=== PATIENT | male | born 1950 | race Caucasian/White ===

== ENCOUNTER 2021-08-03 06:40 | Inpatient (IN) | payer OTHER ==
[2021-08-03] MEDS ORDERED: Sodium Chloride 0.9% 1,000 ML ONE (07:07)
[2021-08-03] MEDS ORDERED: Aspirin 81 MG Tab.Chew ONE (07:07)
[2021-08-03] MEDS ORDERED: Aspirin 81 MG Tab.Chew PO ONE (07:22)
[2021-08-03] MEDS ORDERED: Sodium Chloride 0.9% 1,000 ML IV ONE ×2 (07:22→09:19)
[2021-08-03] MEDS ORDERED: Acetaminophen 500 MG Tab PO ONE (07:42)
--- NOTE | 2021-08-03 07:52 | EDM.PDOC ---
ED HPI GENERAL MEDICAL PROBLEM - General Chief Complaint: Respiratory Problem Stated Complaint: shortness of breath Time Seen by Provider: 08/03/21 07:10 Source of Information: Reports: Patient, Family () History Limitations: Reports: No Limitations - History of Present Illness INITIAL COMMENTS - FREE TEXT/NARRATIVE: 71-year-old male presents to the emergency room with complaints of shortness of breath, diaphoretic for 48 hours. He reports no chest pain. He has not been feeling well and reports a mild cough. Denies a headache, nausea vomiting. He denies any fever or chills. No abdominal pain. He is not aware of any recent exposure to Covid. He has not had any swelling in his legs. He has a past medical history is significant for coronary artery disease VT, stent, defibrillator placement in 2004. Positive for hypertension and congestive heart failure. 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 He is a previous smoker. Primary care is Dr. Ervin from the [facility]. He goes to [place]. Onset: Gradual Onset Date: 08/01/21 Duration: Day(s):, Getting Worse Location: Reports: Chest Severity: Moderate Improves with: Reports: None Worsens with: Reports: None Associated Symptoms: Reports: Cough, Diaphoresis, Fever/Chills, Shortness of Breath. Denies: Chest Pain, Nausea/Vomiting - Related Data Allergies Allergy/AdvReac Type Severity Reaction Status Date / Time No Known Allergies Allergy Verified 08/03/21 07:01 ED ROS GENERAL - Review of Systems Review Of Systems: See Below Constitutional: Reports: Fever, Diaphoresis. Denies: Chills HEENT: Reports: Glasses Respiratory: Reports: Shortness of Breath, Cough Cardiovascular: Reports: Blood Pressure Problem, Dyspnea on Exertion. Denies: Chest Pain, Claudication, Edema Endocrine: Reports: No Symptoms GI/Abdominal: Reports: No Symptoms : Reports: No Symptoms Musculoskeletal: Reports: No Symptoms Skin: Reports: Diaphoresis, Other (Is warm and sweaty). Denies: Cyanosis Neurological: Reports: No Symptoms Psychiatric: Reports: No Symptoms Hematologic/Lymphatic: Reports: No Symptoms Immunologic: Reports: No Symptoms ED EXAM, GENERAL - Physical Exam Exam: See Below Exam Limited By: No Limitations General Appearance: Alert, WD/WN, Mild Distress, Other (Overweight) Eye Exam: Bilateral Eye: EOMI Ears: Hearing Grossly Normal Nose: Normal Inspection, Normal Mucosa Throat/Mouth: Normal Inspection, Normal Oropharynx, Normal Voice, No Airway Compromise Head: Atraumatic, Normocephalic Neck: Normal Inspection, Supple, Non-Tender, Full Range of Motion. No: Lymphadenopathy (L), Lymphadenopathy (R) Respiratory/Chest: No Respiratory Distress, Lungs Clear, Normal Breath Sounds, No Accessory Muscle Use, Chest Non-Tender Cardiovascular: Regular Rate, Rhythm, No Edema, No JVD Peripheral Pulses: 1+: Carotid (L), Carotid (R), Radial (L), Radial (R), Dorsalis Pedis (L), Dorsalis Pedis (R) GI/Abdominal: Normal Bowel Sounds, Soft, Non-Tender, No Organomegaly Back Exam: Normal Inspection, Full Range of Motion Extremities: Normal Inspection, Normal Range of Motion, No Pedal Edema Neurological: Alert, Oriented, No Motor/Sensory Deficits Psychiatric: Normal Affect, Normal Mood Skin Exam: Warm, Diaphoretic Lymphatic: No Adenopathy Course - Vital Signs Last Recorded V/S: Last Vital Signs Temp 98.8 F 08/03/21 08:16 Pulse 71 08/03/21 10:00 Resp 17 08/03/21 10:00 BP 115/59 L 08/03/21 10:00 Pulse Ox 94 L 08/03/21 10:00 - Orders/Labs/Meds Orders: Active Orders 24 hr Category Date Time Status PROCALCITONIN [REF] Stat Lab 08/03/21 08:31 Ordered Sodium Chloride 0.9% [Normal Saline] 100 ml Med 08/03/21 11:15 Active IV ASDIRECTED EKG 12 Lead [EK] Stat Ther 08/03/21 07:23 Ordered Medication Orders Sodium Chloride (Normal Saline) 100 mls @ 200 mls/hr IV ASDIRECTED WES Last Admin: 08/03/21 11:04 Dose: 200 mls/hr Documented by: MARICRUZ Labs: Laboratory Tests 08/03/21 08/03/21 08/03/21 Range/Units 07:00 07:00 07:40 WBC 5.39 (5.00-10.00) 10^3/uL RBC 4.77 (4.50-6.00) 10^6/uL Hgb 14.2 (13.0-17.0) g/dL Hct 42.6 (40.0-52.0) % MCV 89.3 (82.0-92.0) fL MCH 29.8 (27.0-31.0) pg MCHC 33.3 (32.0-36.0) g/dL RDW 13.8 (11.5-14.5) % Plt Count 138 L (150-400) 10^3/uL MPV 10.9 H (7.4-10.4) fL Immature Gran % (Auto) 0.2 (0.0-5.0) % Neut % (Auto) 89.2 H (50.0-70.0) % Lymph % (Auto) 6.3 L (20.0-40.0) % [place] % (Auto) 3.9 (2.0-8.0) % Eos % (Auto) 0.2 L (1.0-3.0) % Baso % (Auto) 0.2 (0.0-1.0) % Neut # (Auto) 4.81 (2.50-7.00) 10^3/uL Lymph # (Auto) 0.34 L (1.00-4.00) 10^3/uL [place] # (Auto) 0.21 (0.10-0.80) 10^3/uL Eos # (Auto) 0.01 L (0.10-0.30) 10^3/uL Baso # (Auto) 0.01 (0.00-0.10) 10^3/uL Immature Gran # (Auto) 0.01 (0.00-0.50) 10^3/uL APTT (22.8-31.4) SEC D-Dimer, Quantitative (<400) ng/mL Sodium 137 (136-145) mmol/L Potassium 3.8 (3.5-5.1) mmol/L Chloride 100 (98-107) mmol/L Carbon Dioxide 25.4 (21.0-32.0) mmol/L Anion Gap 15.4 H (5-15) mmol/L BUN 24 H (7-18) mg/dL Creatinine 1.26 H (0.51-1.17) mg/dL Est Cr Clr Drug Dosing 52.02 mL/min Estimated GFR (MDRD) 56 mL/min Glucose 127 (70-140) mg/dL Lactic Acid (0.4-2.0) mmol/L Calcium 8.3 L (8.7-10.3) mg/dL Total Bilirubin 0.5 (0.2-1.0) mg/dL AST 47 H (15-37) U/L ALT 38 (14-63) U/L Alkaline Phosphatase 65 (46-116) U/L Troponin I High Sens 38.000 (0-76.000) pg/mL C-Reactive Protein (0.0-0.9) mg/dL B-Natriuretic Peptide 56 (0-100) pg/mL Total Protein 7.1 (6.4-8.2) g/dL Albumin 2.54 L (3.40-5.00) g/dL SARS CoV-2 RNA Rapid HOLLI (NEGATIVE) 08/03/21 08/03/21 08/03/21 Range/Units 07:47 08:00 08:31 WBC (5.00-10.00) 10^3/uL RBC (4.50-6.00) 10^6/uL Hgb (13.0-17.0) g/dL Hct (40.0-52.0) % MCV (82.0-92.0) fL MCH (27.0-31.0) pg MCHC (32.0-36.0) g/dL RDW (11.5-14.5) % Plt Count (150-400) 10^3/uL MPV (7.4-10.4) fL Immature Gran % (Auto) (0.0-5.0) % Neut % (Auto) (50.0-70.0) % Lymph % (Auto) (20.0-40.0) % [place] % (Auto) (2.0-8.0) % Eos % (Auto) (1.0-3.0) % Baso % (Auto) (0.0-1.0) % Neut # (Auto) (2.50-7.00) 10^3/uL Lymph # (Auto) (1.00-4.00) 10^3/uL [place] # (Auto) (0.10-0.80) 10^3/uL Eos # (Auto) (0.10-0.30) 10^3/uL Baso # (Auto) (0.00-0.10) 10^3/uL Immature Gran # (Auto) (0.00-0.50) 10^3/uL APTT 30.1 (22.8-31.4) SEC D-Dimer, Quantitative 1610 H (<400) ng/mL Sodium (136-145) mmol/L Potassium (3.5-5.1) mmol/L Chloride (98-107) mmol/L Carbon Dioxide (21.0-32.0) mmol/L Anion Gap (5-15) mmol/L BUN (7-18) mg/dL Creatinine (0.51-1.17) mg/dL Est Cr Clr Drug Dosing mL/min Estimated GFR (MDRD) mL/min Glucose (70-140) mg/dL Lactic Acid 1.9 (0.4-2.0) mmol/L Calcium (8.7-10.3) mg/dL Total Bilirubin (0.2-1.0) mg/dL AST (15-37) U/L ALT (14-63) U/L Alkaline Phosphatase (46-116) U/L Troponin I High Sens (0-76.000) pg/mL C-Reactive Protein (0.0-0.9) mg/dL B-Natriuretic Peptide (0-100) pg/mL Total Protein (6.4-8.2) g/dL Albumin (3.40-5.00) g/dL SARS CoV-2 RNA Rapid HOLLI Positive H (NEGATIVE) 08/03/21 Range/Units 08:34 WBC (5.00-10.00) 10^3/uL RBC (4.50-6.00) 10^6/uL Hgb (13.0-17.0) g/dL Hct (40.0-52.0) % MCV (82.0-92.0) fL MCH (27.0-31.0) pg MCHC (32.0-36.0) g/dL RDW (11.5-14.5) % Plt Count (150-400) 10^3/uL MPV (7.4-10.4) fL Immature Gran % (Auto) (0.0-5.0) % Neut % (Auto) (50.0-70.0) % Lymph % (Auto) (20.0-40.0) % [place] % (Auto) (2.0-8.0) % Eos % (Auto) (1.0-3.0) % Baso % (Auto) (0.0-1.0) % Neut # (Auto) (2.50-7.00) 10^3/uL Lymph # (Auto) (1.00-4.00) 10^3/uL [place] # (Auto) (0.10-0.80) 10^3/uL Eos # (Auto) (0.10-0.30) 10^3/uL Baso # (Auto) (0.00-0.10) 10^3/uL Immature Gran # (Auto) (0.00-0.50) 10^3/uL APTT (22.8-31.4) SEC D-Dimer, Quantitative (<400) ng/mL Sodium (136-145) mmol/L Potassium (3.5-5.1) mmol/L Chloride (98-107) mmol/L Carbon Dioxide (21.0-32.0) mmol/L Anion Gap (5-15) mmol/L BUN (7-18) mg/dL Creatinine (0.51-1.17) mg/dL Est Cr Clr Drug Dosing mL/min Estimated GFR (MDRD) mL/min Glucose (70-140) mg/dL Lactic Acid (0.4-2.0) mmol/L Calcium (8.7-10.3) mg/dL Total Bilirubin (0.2-1.0) mg/dL AST (15-37) U/L ALT (14-63) U/L Alkaline Phosphatase (46-116) U/L Troponin I High Sens (0-76.000) pg/mL C-Reactive Protein 18.1 H (0.0-0.9) mg/dL B-Natriuretic Peptide (0-100) pg/mL Total Protein (6.4-8.2) g/dL Albumin (3.40-5.00) g/dL SARS CoV-2 RNA Rapid HOLLI (NEGATIVE) Meds: Medications Generic Name Dose Route Start Last Admin Trade Name Freq PRN Reason Stop Dose Admin Sodium Chloride 100 mls @ 200 mls/hr 08/03/21 11:15 08/03/21 11:04 Normal Saline IV 200 mls/hr ASDIRECTED WES Administration Discontinued Medications Generic Name Dose Route Start Last Admin Trade Name Naif PRN Reason Stop Dose Admin Acetaminophen 1,000 mg 08/03/21 07:42 08/03/21 08:16 Acetaminophen 500 Mg Tab PO 08/03/21 07:43 1,000 mg ONETIME ONE Administration Aspirin Confirm 08/03/21 07:07 08/03/21 07:25 Aspirin 81 Mg Tab.Chew Administered 08/03/21 07:08 Not Given Dose 324 mg .ROUTE .STK-MED ONE Aspirin 324 mg 08/03/21 07:22 08/03/21 07:25 Aspirin 81 Mg Tab.Chew PO 08/03/21 07:23 324 mg ONETIME ONE Administration Dexamethasone 6 mg 08/03/21 08:35 08/03/21 08:50 Dexamethasone 10 Mg/Ml Sdv IVPUSH 08/03/21 08:36 6 mg ONETIME ONE Administration Sodium Chloride Confirm 08/03/21 07:07 08/03/21 07:26 Normal Saline Administered 08/03/21 07:08 Not Given Dose 1,000 mls @ as directed .ROUTE .STK-MED ONE Sodium Chloride 1,000 mls @ 999 mls/hr 08/03/21 07:22 08/03/21 07:25 Normal Saline IV 08/03/21 08:22 999 mls/hr .BOLUS ONE Administration Sodium Chloride 1,000 mls @ 1,000 mls/hr 08/03/21 09:19 08/03/21 09:20 Normal Saline IV 08/03/21 10:18 1,000 mls/hr .BOLUS ONE Administration Iopamidol 75 ml 08/03/21 09:53 08/03/21 11:04 Iopamidol 755 Mg/Ml 75 Ml Bottle IVPUSH 08/03/21 09:54 75 ml ONETIME ONE Administration - Radiology Interpretation Free Text/Narrative:: Chest PA and lateral Indication: Shortness of breath Comparison: None Discussion: Cardiomegaly with borderline central vascular congestion. Scattered paronychial scarring. No infiltrates or other pathology identified. But the scarring and vascular congestion limits sensitivity. Left subclavian approach pacemaker leads RA and RV. No effusion Impression: Cardiomegaly with borderline central vascular congestion CTA of chest Indication: Elevated D-dimer, Covid positive Comparison: None Discussion: The pulmonary arteries are normal in appearance with no emboli identified. Scattered areas of groundglass density seen throughout the lungs bilaterally. Mild central lobular and paraseptal emphysema. Airway thickening consistent with chronic bronchitis. No pleural or pericardial effusion. The heart is enlarged. Coronary artery disease. Atherosclerotic calcifications of the aorta and its branches. No mediastinal, biliary or axillary lymphadenopathy. 1 cm hypodensity within the liver likely represents a cyst. Impression: 1. No evidence acute pulmonary embolism 2. Scattered areas of groundglass density seen throughout the lungs bilaterally. Findings are likely infectious inflammatory in nature and can be seen with atypical/viral pneumonia. - Re-Assessments/Exams Free Text/Narrative Re-Assessment/Exam: 08/03/21 08:10 And is feeling much better. He is no longer diaphoretic. His O2 was dropped down to 3 L he is maintaining 95% on O2 air. Respiratory at 23. 08/03/21 11:18 Patient was taken off his oxygen to see if he was able to maintain his O2 saturations. On room air he dropped down to 78% he was placed back on 4 L of O2 nasal cannula where his O2 saturations are stabilized at 92%. I have discussed these findings with the patient today. He is not can be able to go home and will need to be admitted in the hospital with supplemental oxygen. Departure - Departure Time of Disposition: 11:40 Disposition: Admitted As Inpatient 66 Condition: Fair Clinical Impression: Hypoxemia, Respiratory distress determined by examination, SARS-CoV-2 positive - Discharge Information Referrals: Rajan Ervin MD [Primary Care Provider] - Forms: ED Department Discharge Sepsis Event Note (ED) - Evaluation Sepsis Screening Result: No Definite Risk - Focused Exam Vital Signs: Vital Signs Temp Temp Temp Pulse Resp BP Pulse Ox 08/03/21 10:00 71 17 115/59 L 94 L 08/03/21 08:16 98.8 F 08/03/21 08:00 71 18 100/57 L 96 08/03/21 07:30 98.8 F 75 23 H 98/66 94 L 08/03/21 07:15 79 20 98/66 94 L 08/03/21 07:00 78 20 86/49 L 93 L 08/03/21 06:56 96.2 F L 83 22 H 98/52 L 92 L - My Orders Last 24 Hours: My Active Orders 08/03/21 07:23 EKG 12 Lead [EK] Stat 08/03/21 08:31 PROCALCITONIN [REF] Stat 08/03/21 11:15 Sodium Chloride 0.9% [Normal Saline] 100 ml IV ASDIRECTED - Assessment/Plan Last 24 Hours: My Active Orders 08/03/21 07:23 EKG 12 Lead [EK] Stat 08/03/21 08:31 PROCALCITONIN [REF] Stat 08/03/21 11:15 Sodium Chloride 0.9% [Normal Saline] 100 ml IV ASDIRECTED Assessment:: Hypoxia Respiratory distress Positive Covid Plan: Patient was taken off his oxygen to see if he was able to maintain his O2 saturations. On room air he dropped down to 78% he was placed back on 4 L of O2 nasal cannula where his O2 saturations are stabilized at 92%. I have discussed these findings with the patient today. He is not able to go home and will need to be admitted in the hospital with supplemental oxygen. 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 Anibal has responded well with supplemental oxygen at 4 L nasal cannula. His blood pressures have improved and is currently 115/63 he is no longer hypotensive after 2 L of IV fluids given. He struggles with his O2 saturations when on room air and is dependent on supplemental oxygen. He was given 6 mg of dexamethasone IV.
[2021-08-03 08:34] LABS: ANION GAP 15.4 mmol/L (5-15)
[2021-08-03] MEDS ORDERED: Dexamethasone 10 MG/ML SDV IVPUSH ONE (08:35)
--- NOTE | 2021-08-03 09:11 | CR ---
[id number] RAD/RAD Chest PA And Lateral EXAM: RAD Chest PA And Lateral INDICATION: SHORTNESS OF BREATH COMPARISON: None. DISCUSSION: Cardiomegaly with borderline central vascular congestion. Scattered parenchymal scarring. No infiltrates or other pathology identified, but the scarring and vascular congestion limit sensitivity. Left subclavian approach pacemaker leads RA and RV. No effusions. IMPRESSION: 1. Cardiomegaly with borderline central vascular congestion. Bravo Vizcaino MD 08/03/21 0910 Thank you for allowing us to participate in the care of your patient.
[2021-08-03 09:47] LABS: PTT,PARTIAL THROMBOPLSTIN TIME 30.1 SEC (22.8-31.4)
[2021-08-03] MEDS ORDERED: Iopamidol 755 Mg/ML 75 ML Bottle IVPUSH ONE (09:53)
[2021-08-03] MEDS ORDERED: Sodium Chloride 0.9% 50 ML IV SCH (10:00)
[2021-08-03] MEDS ORDERED: Sodium Chloride 0.9% 100 ML IV SCH (11:15)
--- NOTE | 2021-08-03 11:27 | CT ---
[id number] CT/CTA Chest EXAM: CT ANGIOGRAM CHEST INDICATION: ELEVATED D DIMER, COVID POSITIVE. COMPARISON: None. DISCUSSION: The pulmonary arteries are normal in appearance with no emboli identified. Scattered areas of groundglass density seen throughout the lungs bilaterally. Mild centrilobular and paraseptal emphysema. Airway thickening consistent chronic bronchitis.No pleural or pericardial effusion. The heart is enlarged. Coronary artery disease. Atherosclerotic calcifications of the aorta and its branches. No mediastinal, hilar or axillary lymphadenopathy. 1 cm hypodensity within the liver likely represents a cyst. IMPRESSION: 1. No evidence of acute pulmonary embolism. 2. Scattered areas of groundglass density seen throughout the lungs bilaterally. Findings are likely infectious/inflammatory in nature as can be seen with atypical/viral pneumonia. Ramon Ro DO 08/03/21 1125 Thank you for allowing us to participate in the care of your patient.
[2021-08-03] MEDS ORDERED: Acetaminophen 325 MG Tab PO PRN (12:07)
--- NOTE | 2021-08-03 14:15 | PCM.HP.2 ---
H&P History of Present Illness - General Date of Service: 08/03/21 Admit Problem/Dx: Admission Diagnosis/Problem Admission Diagnosis/Problem Hypoxemia requiring supplemental oxygen - Related Data Allergies/Adverse Reactions: Allergies Allergy/AdvReac Type Severity Reaction Status Date / Time No Known Allergies Allergy Verified 08/03/21 07:01 Home Medications: Home Meds Acetaminophen [Acetaminophen Extra Strength] 1,000 mg PO BID 08/03/21 [History] Aspirin 325 mg PO DAILY 08/03/21 [History] Cyclobenzaprine [Flexeril] 10 mg PO TID PRN 08/03/21 [History] Ezetimibe [Zetia] 10 mg PO DAILY 08/03/21 [History] Levothyroxine Sodium [Synthroid] 100 mcg PO ACBREAKFAST 08/03/21 [History] Multivitamin with Minerals [Multiple Vitamin] 1 tab PO DAILY 08/03/21 [History] Nitroglycerin [Nitrostat] 0.4 mg SL ASDIRECTED PRN 08/03/21 [History] Pantoprazole [ProTONIX] 40 mg PO BID 08/03/21 [History] amLODIPine Besylate [Amlodipine Besylate] 10 mg PO DAILY 08/03/21 [History] atorvaSTATin Calcium [Atorvastatin Calcium] 80 mg PO BEDTIME 08/03/21 [History] carvediloL [Carvedilol] 25 mg PO BID 08/03/21 [History] guaiFENesin [Mucinex] 600 mg PO BEDTIME 08/03/21 [History] hydroCHLOROthiazide [Hydrochlorothiazide] 25 mg PO DAILY 08/03/21 [History] traMADol [Ultram] 50 mg PO TID 08/03/21 [History] Past Medical History HEENT History: Reports: Hard of Hearing, Impaired Vision Cardiovascular History: Reports: High Cholesterol, Hypertension, VA, Stents Respiratory History: Reports: Sleep Apnea Gastrointestinal History: Reports: GERD Genitourinary History: Reports: BPH Musculoskeletal History: Reports: RA Psychiatric History: Reports: None Endocrine/Metabolic History: Reports: Hypothyroidism, Obesity/BMI 30+ Oncologic (Cancer) History: Reports: Lung - Infectious Disease History Infectious Disease History: Reports: Chicken Pox, Influenza, Novel Coronavirus - Past Surgical History Cardiovascular Surgical History: Reports: Coronary Artery Stent, Other (See Shefali lora) Other Cardiovascular Surgeries/Procedures: ICD Social & Family History - Family History Family Medical History: No Pertinent Family History - Tobacco Use Tobacco Use Status *Q: Former Tobacco User Years of Tobacco use: 20 Packs/Tins Daily: 1 Used Tobacco, but Quit: Yes Month/Year Tobacco Last Used: 09/28/2004 Second Hand Smoke Exposure: No - Caffeine Use Caffeine Use: Reports: Coffee - Alcohol Use Days Per Week of Alcohol Use: 1 Number of Drinks Per Day: 1 Total Drinks Per Week: 1 - Recreational Drug Use Recreational Drug Use: No H&P Review of Systems - Review of Systems: Review Of Systems: See Below General: Reports: Fever (intermittently over the past 10 days to 2 weeks), Diaphoresis, Decreased Appetite HEENT: Reports: Headaches Pulmonary: Reports: Shortness of Breath, Cough Cardiovascular: Reports: Dyspnea on Exertion, Other (diaphoresis this morning) Gastrointestinal: Reports: Diarrhea, Decreased Appetite. Denies: Nausea, Vomiting Genitourinary: Reports: No Symptoms Musculoskeletal: Reports: No Symptoms Skin: Reports: No Symptoms Psychiatric: Reports: No Symptoms Neurological: Reports: No Symptoms Hematologic/Lymphatic: Reports: No Symptoms Immunologic: Reports: No Symptoms Exam - Exam Exam: See Below - Vital Signs Vital Signs: Last Vital Signs Temp 97.7 F 08/03/21 12:05 Pulse 72 08/03/21 12:05 Resp 20 08/03/21 12:05 BP 140/67 08/03/21 12:05 Pulse Ox 94 L 08/03/21 12:07 Weight: 225 lb - Exam Quality Assessment: Supplemental Oxygen, DVT Prophylaxis General: Alert, Oriented, Cooperative. No: Mild Distress HEENT: Conjunctiva Clear, Mucosa Moist & [place] Neck: Supple, Trachea Midline Lungs: Decreased Breath Sounds, Rhonchi. No: Crackles Cardiovascular: Regular Rate, Regular Rhythm. No: Systolic Murmur GI/Abdominal Exam: Normal Bowel Sounds, Soft, Non-Tender, No Distention (Male) Exam: Deferred Rectal (Males) Exam: Deferred Back Exam: Normal Inspection, Full Range of Motion Extremities: Normal Inspection, Normal Range of Motion, Non-Tender, No Pedal Edema, Normal Capillary Refill Peripheral Pulses: 2+: Dorsalis Pedis (L), Dorsalis Pedis (R) Skin: Warm, Dry, Intact Neurological: Normal Speech, Normal Tone Neuro Extensive - Mental Status: Alert, Oriented x3, Normal Mood/Affect, Normal Cognition Psychiatric: Alert, Normal Affect, Normal Mood - Patient Data Lab Results Last 24 hrs: Laboratory Results - last 24 hr 08/03/21 08/03/21 08/03/21 Range/Units 07:00 07:00 07:40 WBC 5.39 (5.00-10.00) 10^3/uL RBC 4.77 (4.50-6.00) 10^6/uL Hgb 14.2 (13.0-17.0) g/dL Hct 42.6 (40.0-52.0) % MCV 89.3 (82.0-92.0) fL MCH 29.8 (27.0-31.0) pg MCHC 33.3 (32.0-36.0) g/dL RDW 13.8 (11.5-14.5) % Plt Count 138 L (150-400) 10^3/uL MPV 10.9 H (7.4-10.4) fL Immature Gran % (Auto) 0.2 (0.0-5.0) % Neut % (Auto) 89.2 H (50.0-70.0) % Lymph % (Auto) 6.3 L (20.0-40.0) % [place] % (Auto) 3.9 (2.0-8.0) % Eos % (Auto) 0.2 L (1.0-3.0) % Baso % (Auto) 0.2 (0.0-1.0) % Neut # (Auto) 4.81 (2.50-7.00) 10^3/uL Lymph # (Auto) 0.34 L (1.00-4.00) 10^3/uL [place] # (Auto) 0.21 (0.10-0.80) 10^3/uL Eos # (Auto) 0.01 L (0.10-0.30) 10^3/uL Baso # (Auto) 0.01 (0.00-0.10) 10^3/uL Immature Gran # (Auto) 0.01 (0.00-0.50) 10^3/uL APTT (22.8-31.4) SEC D-Dimer, Quantitative (<400) ng/mL Sodium 137 (136-145) mmol/L Potassium 3.8 (3.5-5.1) mmol/L Chloride 100 (98-107) mmol/L Carbon Dioxide 25.4 (21.0-32.0) mmol/L Anion Gap 15.4 H (5-15) mmol/L BUN 24 H (7-18) mg/dL Creatinine 1.26 H (0.51-1.17) mg/dL Est Cr Clr Drug Dosing 52.02 mL/min Estimated GFR (MDRD) 56 mL/min Glucose 127 (70-140) mg/dL Lactic Acid (0.4-2.0) mmol/L Calcium 8.3 L (8.7-10.3) mg/dL Total Bilirubin 0.5 (0.2-1.0) mg/dL AST 47 H (15-37) U/L ALT 38 (14-63) U/L Alkaline Phosphatase 65 (46-116) U/L Troponin I High Sens 38.000 (0-76.000) pg/mL C-Reactive Protein (0.0-0.9) mg/dL B-Natriuretic Peptide 56 (0-100) pg/mL Total Protein 7.1 (6.4-8.2) g/dL Albumin 2.54 L (3.40-5.00) g/dL SARS CoV-2 RNA Rapid HOLLI (NEGATIVE) 08/03/21 08/03/21 08/03/21 Range/Units 07:47 08:00 08:31 WBC (5.00-10.00) 10^3/uL RBC (4.50-6.00) 10^6/uL Hgb (13.0-17.0) g/dL Hct (40.0-52.0) % MCV (82.0-92.0) fL MCH (27.0-31.0) pg MCHC (32.0-36.0) g/dL RDW (11.5-14.5) % Plt Count (150-400) 10^3/uL MPV (7.4-10.4) fL Immature Gran % (Auto) (0.0-5.0) % Neut % (Auto) (50.0-70.0) % Lymph % (Auto) (20.0-40.0) % [place] % (Auto) (2.0-8.0) % Eos % (Auto) (1.0-3.0) % Baso % (Auto) (0.0-1.0) % Neut # (Auto) (2.50-7.00) 10^3/uL Lymph # (Auto) (1.00-4.00) 10^3/uL [place] # (Auto) (0.10-0.80) 10^3/uL Eos # (Auto) (0.10-0.30) 10^3/uL Baso # (Auto) (0.00-0.10) 10^3/uL Immature Gran # (Auto) (0.00-0.50) 10^3/uL APTT 30.1 (22.8-31.4) SEC D-Dimer, Quantitative 1610 H (<400) ng/mL Sodium (136-145) mmol/L Potassium (3.5-5.1) mmol/L Chloride (98-107) mmol/L Carbon Dioxide (21.0-32.0) mmol/L Anion Gap (5-15) mmol/L BUN (7-18) mg/dL Creatinine (0.51-1.17) mg/dL Est Cr Clr Drug Dosing mL/min Estimated GFR (MDRD) mL/min Glucose (70-140) mg/dL Lactic Acid 1.9 (0.4-2.0) mmol/L Calcium (8.7-10.3) mg/dL Total Bilirubin (0.2-1.0) mg/dL AST (15-37) U/L ALT (14-63) U/L Alkaline Phosphatase (46-116) U/L Troponin I High Sens (0-76.000) pg/mL C-Reactive Protein (0.0-0.9) mg/dL B-Natriuretic Peptide (0-100) pg/mL Total Protein (6.4-8.2) g/dL Albumin (3.40-5.00) g/dL SARS CoV-2 RNA Rapid HOLLI Positive H (NEGATIVE) 08/03/21 Range/Units 08:34 WBC (5.00-10.00) 10^3/uL RBC (4.50-6.00) 10^6/uL Hgb (13.0-17.0) g/dL Hct (40.0-52.0) % MCV (82.0-92.0) fL MCH (27.0-31.0) pg MCHC (32.0-36.0) g/dL RDW (11.5-14.5) % Plt Count (150-400) 10^3/uL MPV (7.4-10.4) fL Immature Gran % (Auto) (0.0-5.0) % Neut % (Auto) (50.0-70.0) % Lymph % (Auto) (20.0-40.0) % [place] % (Auto) (2.0-8.0) % Eos % (Auto) (1.0-3.0) % Baso % (Auto) (0.0-1.0) % Neut # (Auto) (2.50-7.00) 10^3/uL Lymph # (Auto) (1.00-4.00) 10^3/uL [place] # (Auto) (0.10-0.80) 10^3/uL Eos # (Auto) (0.10-0.30) 10^3/uL Baso # (Auto) (0.00-0.10) 10^3/uL Immature Gran # (Auto) (0.00-0.50) 10^3/uL APTT (22.8-31.4) SEC D-Dimer, Quantitative (<400) ng/mL Sodium (136-145) mmol/L Potassium (3.5-5.1) mmol/L Chloride (98-107) mmol/L Carbon Dioxide (21.0-32.0) mmol/L Anion Gap (5-15) mmol/L BUN (7-18) mg/dL Creatinine (0.51-1.17) mg/dL Est Cr Clr Drug Dosing mL/min Estimated GFR (MDRD) mL/min Glucose (70-140) mg/dL Lactic Acid (0.4-2.0) mmol/L Calcium (8.7-10.3) mg/dL Total Bilirubin (0.2-1.0) mg/dL AST (15-37) U/L ALT (14-63) U/L Alkaline Phosphatase (46-116) U/L Troponin I High Sens (0-76.000) pg/mL C-Reactive Protein 18.1 H (0.0-0.9) mg/dL B-Natriuretic Peptide (0-100) pg/mL Total Protein (6.4-8.2) g/dL Albumin (3.40-5.00) g/dL SARS CoV-2 RNA Rapid HOLLI (NEGATIVE) Result Diagrams: 08/03/21 07:00 08/03/21 07:40 Sepsis Event Note - Evaluation Sepsis Screening Result: No Definite Risk - Focused Exam Vital Signs: Vital Signs Temp Temp Temp Pulse Resp BP Pulse Ox 08/03/21 12:07 08/03/21 12:05 97.7 F 72 20 140/67 94 L 08/03/21 11:45 72 18 115/63 94 L 08/03/21 11:15 73 20 128/61 92 L 08/03/21 10:30 74 19 113/62 93 L 08/03/21 10:00 71 17 115/59 L 94 L 08/03/21 08:16 98.8 F 08/03/21 08:00 71 18 100/57 L 96 08/03/21 07:30 98.8 F 75 23 H 98/66 94 L 08/03/21 07:15 79 20 98/66 94 L 08/03/21 07:00 78 20 86/49 L 93 L 08/03/21 06:56 96.2 F L 83 22 H 98/52 L 92 L Pulse Ox 08/03/21 12:07 94 L 08/03/21 12:05 08/03/21 11:45 08/03/21 11:15 08/03/21 10:30 08/03/21 10:00 08/03/21 08:16 08/03/21 08:00 08/03/21 07:30 08/03/21 07:15 08/03/21 07:00 08/03/21 06:56 Problem List Initiated/Reviewed/Updated: Yes Orders Last 24hrs: Active Orders 24 hr Category Date Time Status Patient Status [ADT] Routine ADT 08/03/21 11:49 Active IS (RT) [RT Incentive Spirometry] [RC] Q1HWA Care 08/03/21 13:41 Active Intake and Output [RC] 1400,2200,0600 Care 08/03/21 12:07 Active Oxygen Therapy [RC] PRN Care 08/03/21 12:07 Active Up With Assistance [RC] ASDIRECTED Care 08/03/21 12:07 Active Vital Signs [RC] 0300,0700,1100,1500,1900,2300 Care 08/03/21 11:49 Active Heart Healthy Diet [DIET] Diet 08/03/21 Dinner Active C-REACTIVE PROTEIN [CHEM] AM Lab 08/04/21 05:11 Ordered CBC W/O DIFF,HEMOGRAM [HEME] AM Lab 08/04/21 05:11 Ordered COMPREHENSIVE METABOLIC PN,CMP [CHEM] AM Lab 08/04/21 05:11 Ordered MAGNESIUM [CHEM] AM Lab 08/04/21 05:11 Ordered PROCALCITONIN [REF] Stat Lab 08/03/21 08:31 Ordered Acetaminophen [TylenoL] Med 08/03/21 12:07 Active 650 mg PO Q4H PRN Sodium Chloride 0.9% [Normal Saline] 100 ml Med 08/03/21 11:15 Active IV ASDIRECTED EKG 12 Lead [EK] Stat Ther 08/03/21 07:23 Ordered Medication Orders Acetaminophen (Acetaminophen 325 Mg Tab) 650 mg PO Q4H PRN PRN Reason: Pain (Mild 1-3)/fever Sodium Chloride (Normal Saline) 100 mls @ 200 mls/hr IV ASDIRECTED WES Last Admin: 08/03/21 11:04 Dose: 200 mls/hr Documented by: MARICRUZ Assessment/Plan Comment:: HPI summary: Anibal is a 71yM patient who presented to the ER this morning with c /o increased SOB, diaphoresis over the past 48 hours. Denied chest pain, nausea. Endorsed cough. Patient is not vaccinated for COVID. Patient is being treated for lung cancer by the MD in [place] per patient and , last saw oncology about 3 weeks ago prior to onset of current symptoms which started on 07/22/21 per patient. Symptoms were rather intermittent since that time, worsened over the past 2 days which prompted ER visit this am. ED course: Hypotensive, hypoxic in ER. 2L bolus of IV fluids were given with normalization of BP and oxygen applied at 2-4L by NC. CXR indicated cardiomegaly with borderline central vascular congestion. D-dimer 1610; CTA negative for PE; indicated scattered ground glass density, mild centrilobular and preseptal emphysema, CAD with atherosclerosis of the aorta. COVID + in ER. WBC 5.39, Hgb 14.2, Plt 138. Na 137, K 3.8, BUN 24, Creatinine 1.26, Lactic acid 1.9, AST 47, ALT 38, Trop negative, BNP 56, CRP 18.1. Procalcitonin pending, UA pending. Patient given 324mg ASA in ER and dexamethasone 6mg IV. Trial on room air failed in ER, patient was 78% on room air which prompted request for hospital admission for supplemental oxygen. Hospital course: 08/03/21: Patient reports feeling better after the IV fluids in the ER and the oxygen. SOB and sweating has improved. Denies CP, nausea. Patient and refusing remdesevir at this time. They are ok with receiving the lovenox, dex amethasone and adjunctive therapies. Patient requiring 2L to maintain oxygen saturation > 90%. Hospitalization problems and plan: # COVID-19 # COVID Pneumonia # Hypoxia # Elevated CRP; 18.1 # Elevated D-dimer - CTA negative for PE - Supplemental oxygen to maintain O2 sat > 90% - Patient refusing remdesevir - Continue dexamethasone 6mg PO starting tomorrow as IV dose given in ER - Start lovenox 40mg subq daily for anticoagulation - Start Vitamin C, Vitamin D and Zinc - Incentive spirometry 10x/hr while awake - Repeat labs in am: CBC, CMP, CRP, Mg Chronic, stable conditions: # HFrEF - echo 09/2019 indicates EF 45%, hypokinesis and grade 1 diastolic dysfunction - takes lasix 40mg PO daily PRN # CAD/atherosclerlosis of aorta - takes ASA 81 mg PO daily (Hold), continue coreg 25mg PO BID, [place] chart indicates imdur 60mg PO daily (patient states he no longer takes this) # Chronic ischemic heart disease # HTN - takes HCTZ 25mg PO daily, amlodipine 10mg PO daily (HOLD due to hypotension in ER) # Automatic implantable cardioverter-defibrillator in situ # Hx of VA in 2004 with WALTER placed # 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 # Depression - takes wellbutrin XL 300mg PO daily # MATEO # Hx of tobacco abuse - former smoker * UP to date [facility] - [facility] to ensure [facility] medications updated Hospitalization details: # FEN: Oral fluids after 2L bolus in ER, electrolytes stable, heart healthy diet # PPX: lovenox 40mg subq daily; protonix 40mg PO BID # Code status: FULL CODE # Emergency contact: Marisabel Huber [phone] # Disposition: Patient admitted to inpatient status for treatment of COVID-19, COVID pneumonia, hypoxia requiring supplemental oxygen. I anticipate > 2 midnights for treatment of hospital problems. Will plan to arrange for home oxygen should this be required once status clinically improves.
[2021-08-03] MEDS: Acetaminophen 500 MG Tab PO SCH ×2 (15:21→22:46)
[2021-08-03] MEDS: Carvedilol 12.5 MG Tab PO SCH ×2 (15:21→22:47)
[2021-08-03] MEDS: Enoxaparin 40 MG/0.4 ML Syringe SUBCUT SCH (15:45)
[2021-08-03] MEDS: Ascorbic Acid 500 MG Tab PO SCH ×2 (15:47→22:47)
[2021-08-03] MEDS: Cholecalciferol (Vitamin D3) 25 MCG Tab PO SCH (15:47)
[2021-08-03] MEDS: Zinc (Zinc Gluconate) 50 MG Tab PO SCH (15:47)
[2021-08-03] MEDS ORDERED: traMADol 50 MG Tab PO SCH (21:00)
[2021-08-03] MEDS ORDERED: Pantoprazole 40 MG Tab.CR PO SCH (21:00)
[2021-08-03] MEDS: Loperamide 2 MG Cap PO PRN (22:46)
[2021-08-03] MEDS: Tamsulosin 0.4 MG Cap.ER PO SCH (22:46)
[2021-08-03] MEDS: guaiFENesin 600 MG Tab.ER PO SCH (22:46)
[2021-08-03] MEDS: traMADol 50 MG Tab PO SCH (22:47)
[2021-08-03] MEDS: Pantoprazole 40 MG Tab.CR PO SCH (22:48)
[2021-08-04] MEDS: Levothyroxine 100 MCG Tab PO SCH ×2 (06:17→06:31)
[2021-08-04] MEDS: Pantoprazole 40 MG Tab.CR PO SCH ×3 (06:17→21:05)
[2021-08-04] MEDS: Loperamide 2 MG Cap PO PRN ×2 (06:30→14:32)
[2021-08-04 08:21] LABS: ANION GAP 15.4 mmol/L (5-15); CHLORIDE,CL 107 mmol/L (98-107); SODIUM,NA 144 mmol/L (136-145)
[2021-08-04] MEDS: Ascorbic Acid 500 MG Tab PO SCH ×2 (08:45→21:05)
[2021-08-04] MEDS: Cholecalciferol (Vitamin D3) 25 MCG Tab PO SCH (08:45)
[2021-08-04] MEDS: Acetaminophen 500 MG Tab PO SCH ×2 (08:45→21:05)
[2021-08-04] MEDS: traMADol 50 MG Tab PO SCH ×3 (08:46→21:06)
[2021-08-04] MEDS: Zinc (Zinc Gluconate) 50 MG Tab PO SCH ×2 (08:46→08:48)
[2021-08-04] MEDS: Carvedilol 12.5 MG Tab PO SCH ×2 (08:49→21:05)
[2021-08-04] MEDS: Dexamethasone 4 MG Tab PO SCH (08:50)
--- NOTE | 2021-08-04 13:11 | PCM.PN ---
- General Info Date of Service: 08/04/21 Subjective Update: Patient reports feeling much better today. He continues to have diarrhea despite starting imodium last night. Patient sitting up on sofa by the window on rounds today. Functional Status: Reports: Pain Controlled, Tolerating Diet, Ambulating, Urinating, Incentive Spirometry (1250ml). Denies: New Symptoms - Review of Systems General: Reports: No Symptoms HEENT: Reports: No Symptoms Pulmonary: Reports: Cough, Sputum. Denies: Shortness of Breath, Wheezing Cardiovascular: Reports: No Symptoms Gastrointestinal: Reports: Diarrhea. Denies: Abdominal Pain, Decreased Appetite, Nausea Genitourinary: Reports: No Symptoms Musculoskeletal: Reports: No Symptoms Skin: Reports: No Symptoms Neurological: Reports: No Symptoms Psychiatric: Reports: No Symptoms - Patient Data Vitals - Most Recent: Last Vital Signs Temp 96.1 F L 08/04/21 11:00 Pulse 70 08/04/21 11:00 Resp 20 08/04/21 11:00 BP 122/64 08/04/21 11:00 Pulse Ox 91 L 08/04/21 11:09 Weight - Most Recent: 225 lb I&O - Last 24 Hours: Intake & Output 08/03/21 08/04/21 08/04/21 23:59 06:59 14:59 Intake Total Balance Lab Results Last 24 Hours: Laboratory Results - last 24 hr 08/03/21 08/04/21 08/04/21 Range/Units 11:03 07:30 07:30 WBC 4.22 L (5.00-10.00) 10^3/uL RBC 4.75 (4.50-6.00) 10^6/uL Hgb 14.1 (13.0-17.0) g/dL Hct 43.5 (40.0-52.0) % MCV 91.6 (82.0-92.0) fL MCH 29.7 (27.0-31.0) pg MCHC 32.4 (32.0-36.0) g/dL RDW 13.8 (11.5-14.5) % Plt Count 163 (150-400) 10^3/uL MPV 10.8 H (7.4-10.4) fL Sodium 144 (136-145) mmol/L Potassium 4.7 (3.5-5.1) mmol/L Chloride 107 (98-107) mmol/L Carbon Dioxide 26.3 (21.0-32.0) mmol/L Anion Gap 15.4 H (5-15) mmol/L BUN 22 H (7-18) mg/dL Creatinine 1.00 (0.51-1.17) mg/dL Est Cr Clr Drug Dosing 65.55 mL/min Estimated GFR (MDRD) > 60 mL/min Glucose 141 H (70-140) mg/dL Calcium 8.7 (8.7-10.3) mg/dL Magnesium 2.1 (1.8-2.4) mg/dL Total Bilirubin 0.4 (0.2-1.0) mg/dL AST 30 (15-37) U/L ALT 32 (14-63) U/L Alkaline Phosphatase 56 (46-116) U/L C-Reactive Protein 15.7 H (0.0-0.9) mg/dL Total Protein 7.1 (6.4-8.2) g/dL Albumin 2.43 L (3.40-5.00) g/dL TSH, Ultra Sensitive 0.415 (0.340-4.820) uIU/mL Specimen Type Urinblad Urine Color Yellow (YELLOW) Urine Appearance Clear (CLEAR) Urine pH 5.5 (5.0-9.0) Ur Specific Equality 1.015 (1.005-1.030) Urine Protein 30 H (NEGATIVE) mg/dL Urine Glucose (UA) Negative (NEGATIVE) mg/dL Urine Ketones Negative (NEGATIVE) mg/dL Urine Occult Blood Negative (NEGATIVE) Urine Nitrite Negative (NEGATIVE) Urine Bilirubin Negative (NEGATIVE) Urine Urobilinogen 0.2 (0.2-1.0) E.U./dL Ur Leukocyte Esterase Negative (NEGATIVE) Urine RBC Not seen (0-5) /HPF Urine WBC 0-5 (0-5) /HPF Ur Epithelial Cells Rare /LPF Urine Bacteria Not seen (NONE TO FEW) /HPF Med Orders - Current: Current Medications Acetaminophen (Acetaminophen 325 Mg Tab) 650 mg PO Q4H PRN PRN Reason: Pain (Mild 1-3)/fever Acetaminophen (Acetaminophen 500 Mg Tab) 1,000 mg PO BID [facility] Last Admin: 08/04/21 08:45 Dose: 1,000 mg Documented by: Ascorbic Acid (Ascorbic Acid 500 Mg Tab) 1,000 mg PO BID [facility] Last Admin: 08/04/21 08:45 Dose: 1,000 mg Documented by: Carvedilol (Carvedilol 12.5 Mg Tab) 25 mg PO BID [facility] Last Admin: 08/04/21 08:49 Dose: 25 mg Documented by: Cholecalciferol (Cholecalciferol (Vitamin D3) 25 Mcg Tab) 25 mcg PO DAILY [facility] Last Admin: 08/04/21 08:45 Dose: 25 mcg Documented by: Dexamethasone (Dexamethasone 4 Mg Tab) 6 mg PO DAILY [facility] Last Admin: 08/04/21 08:50 Dose: 6 mg Documented by: Enoxaparin Sodium (Enoxaparin 40 Mg/0.4 Ml Syringe) 40 mg SUBCUT Q24H [facility] Last Admin: 08/03/21 15:45 Dose: 40 mg Documented by: Guaifenesin (Guaifenesin 600 Mg Tab.Er) 600 mg PO BEDTIME [facility] Last Admin: 08/03/21 22:46 Dose: 600 mg Documented by: Sodium Chloride (Normal Saline) 100 mls @ 200 mls/hr IV ASDIRECTED [facility] Last Admin: 08/03/21 11:04 Dose: 200 mls/hr Documented by: Levothyroxine Sodium (Levothyroxine 100 Mcg Tab) 100 mcg PO ACBREAKFAST [facility] Last Admin: 08/04/21 06:31 Dose: Not Given Documented by: Loperamide HCl (Loperamide 2 Mg Cap) 2 mg PO Q6H PRN PRN Reason: Diarrhea Last Admin: 08/04/21 06:30 Dose: 2 mg Documented by: Pantoprazole Sodium (Pantoprazole 40 Mg Tab.Cr) 80 mg PO BID@0730,2100 [facility] Last Admin: 08/04/21 06:31 Dose: Not Given Documented by: Tamsulosin HCl (Tamsulosin 0.4 Mg Cap.Er) 0.4 mg PO BEDTIME [facility] Last Admin: 08/03/21 22:46 Dose: 0.4 mg Documented by: Tramadol HCl (Tramadol 50 Mg Tab) 100 mg PO TID [facility] Last Admin: 08/04/21 08:46 Dose: 100 mg Documented by: Zinc Gluconate (Zinc (Zinc Gluconate) 50 Mg Tab) 50 mg PO DAILY [facility] Last Admin: 08/04/21 08:48 Dose: 50 mg Documented by: Discontinued Medications Acetaminophen (Acetaminophen 500 Mg Tab) 1,000 mg PO ONETIME ONE Stop: 08/03/21 07:43 Last Admin: 08/03/21 08:16 Dose: 1,000 mg Documented by: Aspirin (Aspirin 81 Mg Tab.Chew) Confirm Administered Dose 324 mg .ROUTE .STK- MED ONE Stop: 08/03/21 07:08 Last Admin: 08/03/21 07:25 Dose: Not Given Documented by: Aspirin (Aspirin 81 Mg Tab.Chew) 324 mg PO ONETIME ONE Stop: 08/03/21 07:23 Last Admin: 08/03/21 07:25 Dose: 324 mg Documented by: Dexamethasone (Dexamethasone 10 Mg/Ml Sdv) 6 mg IVPUSH ONETIME ONE Stop: 08/03/21 08:36 Last Admin: 08/03/21 08:50 Dose: 6 mg Documented by: Sodium Chloride (Normal Saline) Confirm Administered Dose 1,000 mls @ as directed .ROUTE .STK-MED ONE Stop: 08/03/21 07:08 Last Admin: 08/03/21 07:26 Dose: Not Given Documented by: Sodium Chloride (Normal Saline) 1,000 mls @ 999 mls/hr IV .BOLUS ONE Stop: 08/03/21 08:22 Last Admin: 08/03/21 07:25 Dose: 999 mls/hr Documented by: Sodium Chloride (Normal Saline) 1,000 mls @ 1,000 mls/hr IV .BOLUS ONE Stop: 08/03/21 10:18 Last Admin: 08/03/21 09:20 Dose: 1,000 mls/hr Documented by: Iopamidol (Iopamidol 755 Mg/Ml 75 Ml Bottle) 75 ml IVPUSH ONETIME ONE Stop: 08/03/21 09:54 Last Admin: 08/03/21 11:04 Dose: 75 ml Documented by: Pantoprazole Sodium (Pantoprazole 40 Mg Tab.Cr) 40 mg PO BID@0730,2100 [facility] Tramadol HCl (Tramadol 50 Mg Tab) 50 mg PO TID [facility] - Exam Quality Assessment: Supplemental Oxygen (93% on 4L ), DVT Prophylaxis General: Alert, Oriented, Cooperative, No Acute Distress HEENT: Pupils Equal, Pupils Reactive, Mucous Membr. Moist/[place] Neck: Supple, Trachea Midline Lungs: Decreased Breath Sounds. No: Crackles, Rhonchi, Wheezing Cardiovascular: Regular Rate, Regular Rhythm, No Murmurs GI/Abdominal Exam: Normal Bowel Sounds, Soft, Non-Tender, No Distention (Male) Exam: Deferred Back Exam: Normal Inspection, Full Range of Motion Extremities: Normal Inspection, Normal Range of Motion, Non-Tender, No Pedal Edema, Normal Capillary Refill Peripheral Pulses: 2+: Dorsalis Pedis (L), Dorsalis Pedis (R) Skin: Warm, Dry, Intact Neurological: No New Focal Deficit Psy/Mental Status: Alert, Normal Affect, Normal Mood - Patient Data Lab Results Last 24 hrs: Laboratory Results - last 24 hr 08/03/21 08/04/21 08/04/21 Range/Units 11:03 07:30 07:30 WBC 4.22 L (5.00-10.00) 10^3/uL RBC 4.75 (4.50-6.00) 10^6/uL Hgb 14.1 (13.0-17.0) g/dL Hct 43.5 (40.0-52.0) % MCV 91.6 (82.0-92.0) fL MCH 29.7 (27.0-31.0) pg MCHC 32.4 (32.0-36.0) g/dL RDW 13.8 (11.5-14.5) % Plt Count 163 (150-400) 10^3/uL MPV 10.8 H (7.4-10.4) fL Sodium 144 (136-145) mmol/L Potassium 4.7 (3.5-5.1) mmol/L Chloride 107 (98-107) mmol/L Carbon Dioxide 26.3 (21.0-32.0) mmol/L Anion Gap 15.4 H (5-15) mmol/L BUN 22 H (7-18) mg/dL Creatinine 1.00 (0.51-1.17) mg/dL Est Cr Clr Drug Dosing 65.55 mL/min Estimated GFR (MDRD) > 60 mL/min Glucose 141 H (70-140) mg/dL Calcium 8.7 (8.7-10.3) mg/dL Magnesium 2.1 (1.8-2.4) mg/dL Total Bilirubin 0.4 (0.2-1.0) mg/dL AST 30 (15-37) U/L ALT 32 (14-63) U/L Alkaline Phosphatase 56 (46-116) U/L C-Reactive Protein 15.7 H (0.0-0.9) mg/dL Total Protein 7.1 (6.4-8.2) g/dL Albumin 2.43 L (3.40-5.00) g/dL TSH, Ultra Sensitive 0.415 (0.340-4.820) uIU/mL Specimen Type Urinblad Urine Color Yellow (YELLOW) Urine Appearance Clear (CLEAR) Urine pH 5.5 (5.0-9.0) Ur Specific Equality 1.015 (1.005-1.030) Urine Protein 30 H (NEGATIVE) mg/dL Urine Glucose (UA) Negative (NEGATIVE) mg/dL Urine Ketones Negative (NEGATIVE) mg/dL Urine Occult Blood Negative (NEGATIVE) Urine Nitrite Negative (NEGATIVE) Urine Bilirubin Negative (NEGATIVE) Urine Urobilinogen 0.2 (0.2-1.0) E.U./dL Ur Leukocyte Esterase Negative (NEGATIVE) Urine RBC Not seen (0-5) /HPF Urine WBC 0-5 (0-5) /HPF Ur Epithelial Cells Rare /LPF Urine Bacteria Not seen (NONE TO FEW) /HPF Result Diagrams: 08/04/21 07:30 08/04/21 07:30 Sepsis Event Note - Evaluation Sepsis Screening Result: No Definite Risk - Focused Exam Vital Signs: Vital Signs Temp Pulse Pulse Resp BP BP Pulse Ox 08/04/21 11:09 08/04/21 11:00 96.1 F L 70 20 122/64 94 L 08/04/21 08:49 81 145/82 H 08/04/21 06:45 93 L 08/04/21 06:30 97.6 F 80 20 137/77 85 L 08/04/21 03:00 97.9 F 81 20 124/90 91 L Pulse Ox 08/04/21 11:09 91 L 08/04/21 11:00 08/04/21 08:49 08/04/21 06:45 08/04/21 06:30 08/04/21 03:00 - Problem List Review Problem List Initiated/Reviewed/Updated: Yes - My Orders Last 24 Hours: My Active Orders 08/03/21 13:41 IS (RT) [RT Incentive Spirometry] [RC] Q1HWA 08/03/21 14:30 Acetaminophen [Tylenol Extra Strength] 1,000 mg PO BID Ascorbic Acid [Vitamin C] 1,000 mg PO BID Cholecalciferol (Vitamin D3) [Vitamin D3] 25 mcg PO DAILY Enoxaparin [Lovenox] 40 mg SUBCUT Q24H Zinc Gluconate [Zinc] 50 mg PO DAILY carvediloL [Coreg] 25 mg PO BID 08/03/21 16:23 Code Status [Resuscitation Status] Routine 08/03/21 Dinner Heart Healthy Diet [DIET] 08/03/21 21:00 Pantoprazole [ProTONIX] 80 mg PO BID@0730,2100 Tamsulosin [Flomax] 0.4 mg PO BEDTIME guaiFENesin [Mucinex] 600 mg PO BEDTIME traMADol [Ultram] 100 mg PO TID 08/03/21 22:34 Loperamide [Imodium] 2 mg PO Q6H PRN 08/04/21 07:30 Levothyroxine [Synthroid] 100 mcg PO ACBREAKFAST 08/04/21 09:00 dexAMETHasone 6 mg PO DAILY 08/05/21 05:11 CBC WITH AUTO DIFF [HEME] AM CMP [COMPREHENSIVE METABOLIC PN,CMP] [CHEM] AM CRP [C-REACTIVE PROTEIN] [CHEM] AM MG [MAGNESIUM] [CHEM] AM - Plan Plan:: HPI summary: Anibal is a 71yM patient who presented to the ER this morning with c/o increased SOB, diaphoresis over the past 48 hours. Denied chest pain, nausea. Endorsed cough. Patient is not vaccinated for COVID. Patient is being treated for lung cancer by the [facility] in [place] per patient and , last saw oncology about 3 weeks ago prior to onset of current symptoms which started on 07/22/21 per patient. Symptoms were rather intermittent since that time, worsened over the past 2 days which prompted ER visit this am. ED course: Hypotensive, hypoxic in ER. 2L bolus of IV fluids were given with normalization of BP and oxygen applied at 2-4L by NC. CXR indicated cardiomegaly with borderline central vascular congestion. D-dimer 1610; CTA negative for PE; indicated scattered ground glass density, mild centrilobular and preseptal emphysema, CAD with atherosclerosis of the aorta. COVID + in ER. WBC 5.39, Hgb 14.2, Plt 138. Na 137, K 3.8, BUN 24, Creatinine 1.26, Lactic acid 1.9, AST 47, ALT 38, Trop negative, BNP 56, CRP 18.1. Procalcitonin pending, UA pending. Patient given 324mg ASA in ER and dexamethasone 6mg IV. Trial on room air failed in ER, patient was 78% on room air which prompted request for hospital admission for supplemental oxygen. Hospital course: 08/03/21: Patient reports feeling better after the IV fluids in the ER and the oxygen. SOB and sweating has improved. Denies CP, nausea. Patient and refusing remdesevir at this time. They are ok with receiving the lovenox, dexamethasone and adjunctive therapies. Patient requiring 2L to maintain oxygen saturation > 90%. 08/04/21: Imodium started last night for continued diarrhea which has improved symptoms some, however diarrhea persists. Patient feeling better today. Cough has been productive with mucinex. Continues to require supplemental O2, currently at 4L NC. WBC 4.22, Hgb 14.1, Plt 163. Na 144, K 4.7, BUN 22, Creatinine 1.00, CRP 15.7, Albumin 2.43, TSH 0.41. Vitals stable, afebrile. Patient questions when he will be ready to go home. Discussed oxygen requirements as well as lab monitoring with rather elevated CRP. Hospitalization problems and plan: # COVID-19 # COVID Pneumonia # Hypoxia # Elevated CRP; decreased to 15.7 today # Elevated D-dimer - CTA negative for PE - Supplemental oxygen to maintain O2 sat > 90% - Patient refusing remdesevir due to renal concerns - Continue dexamethasone 6mg PO daily - Continue lovenox 40mg subq daily for anticoagulation - Continue Vitamin C, Vitamin D and Zinc - Continue Mucinex 600mg PO BID - Incentive spirometry 10x/hr while awake - Repeat labs in am: CBC, CMP, CRP, Mg Chronic, stable conditions: # HFrEF - echo 09/2019 indicates EF 45%, hypokinesis and grade 1 diastolic dysfunction - takes lasix 40mg PO daily PRN # CAD/atherosclerlosis of aorta - takes ASA 81 mg PO daily (Hold), continue coreg 25mg PO BID, [place] chart indicates imdur 60mg PO daily (patient states he no longer takes this) # Chronic ischemic heart disease # HTN - takes HCTZ 25mg PO daily, amlodipine 10mg PO daily (HOLD due to hypotension in ER) - No longer on current meds per patient, [facility] # Automatic implantable cardioverter-defibrillator in situ # Hx of AL in 2004 with WALTER placed # 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 - takes Tramadol 100mg PO TID # Emphysema per CT findings # HLD - takes atorvastatin 80mg PO daily, Zetia 5mg PO daily (HOLD) # CKD # GERD - continue pantoprazole 80mg PO BID # Hypothyroidism - continue levothyroxine 100mg PO daily # Depression - takes wellbutrin XL 300mg PO daily # MATEO # Hx of tobacco abuse - former smoker * UP to date [facility] - [facility] to ensure [facility] medications updated Hospitalization details: # FEN: Oral fluids, electrolytes stable, heart healthy diet # PPX: lovenox 40mg subq daily; protonix 80mg PO BID (Home dose) # Code status: FULL CODE # Emergency contact: Marisabel [phone] # Disposition: Patient to remain on inpatient status for treatment of COVID, COVID pneumonia and requiring supplemental oxygen. Anticipate discharge in next few days based on clinical course.
[2021-08-04] MEDS: Enoxaparin 40 MG/0.4 ML Syringe SUBCUT SCH (14:27)
[2021-08-04] MEDS: guaiFENesin 600 MG Tab.ER PO SCH (21:04)
[2021-08-04] MEDS: Tamsulosin 0.4 MG Cap.ER PO SCH (21:04)
[2021-08-05] MEDS: Pantoprazole 40 MG Tab.CR PO SCH ×2 (06:04→06:31)
[2021-08-05] MEDS: Levothyroxine 100 MCG Tab PO SCH ×2 (06:04→06:31)
[2021-08-05 08:30] LABS: ANION GAP 17.6 mmol/L (5-15); CHLORIDE,CL 106 mmol/L (98-107); SODIUM,NA 144 mmol/L (136-145)
[2021-08-05] MEDS: Acetaminophen 500 MG Tab PO SCH (09:11)
[2021-08-05] MEDS: Dexamethasone 4 MG Tab PO SCH (09:12)
[2021-08-05] MEDS: Ascorbic Acid 500 MG Tab PO SCH (09:12)
[2021-08-05] MEDS: traMADol 50 MG Tab PO SCH ×2 (09:13→15:03)
[2021-08-05] MEDS: Carvedilol 12.5 MG Tab PO SCH (09:13)
[2021-08-05] MEDS: Cholecalciferol (Vitamin D3) 25 MCG Tab PO SCH (09:14)
[2021-08-05] MEDS: Zinc (Zinc Gluconate) 50 MG Tab PO SCH (09:14)
[2021-08-05] MEDS ORDERED: predniSONE 10 MG Tab PO SCH (14:15)
--- NOTE | 2021-08-05 14:18 | PCM.DCSUM1 ---
Discharge Summary - Hospital Course Free Text/Narrative:: Date of admission: 08/03/21 Date of discharge: 08/05/21 Admission diagnoses: # COVID-19 # COVID Pneumonia # Hypoxia # Elevated CRP; decreased to 4.7 today # Elevated D-dimer - CTA negative for PE - Supplemental oxygen to maintain O2 sat > 90% - Continue tapering dose of PO steroids upon discharge following dexamethasone in hospital - Continue Mucinex 600mg PO BID - Incentive spirometry 10x/hr while awake Discharge diagnoses: # HFrEF - echo 09/2019 indicates EF 45%, hypokinesis and grade 1 diastolic dysfunction - takes lasix 40mg PO daily PRN # CAD/atherosclerlosis of aorta - takes ASA 81 mg PO daily (Hold), continue coreg 25mg PO BID, [place] chart indicates imdur 60mg PO daily (patient states he no longer takes this) # Chronic ischemic heart disease # HTN - takes HCTZ 25mg PO daily, amlodipine 10mg PO daily (HOLD due to hypotension in ER) - No longer on current meds per patient, [facility] # Automatic implantable cardioverter-defibrillator in situ # Hx of [place] in 2004 with WALTER placed # 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 Denied chest pain, nausea. Endorsed cough. Patient is not vaccinated for COVID. [facility] [place] [facility] patient and , last saw oncology about 3 weeks ago prior to onset of current symptoms which started on 07/22/21 per patient. Symptoms were rather intermittent since that time, worsened over the past 2 days which prompted ER visit this am. ED course: Hypotensive, hypoxic in ER. 2L bolus of IV fluids were given with normalization of BP and oxygen applied at 2-4L by VT. CXR indicated cardiomegaly with borderline central vascular congestion. D-dimer 1610; CTA negative for PE; indicated scattered ground glass density, mild centrilobular and preseptal emphysema, CAD with atherosclerosis of the aorta. COVID + in ER. WBC 5.39, Hgb 14.2, Plt 138. Na 137, K 3.8, BUN 24, Creatinine 1.26, Lactic acid 1.9, AST 47, ALT 38, Trop negative, BNP 56, CRP 18.1. Procalcitonin pending, UA pending. Patient given 324mg ASA in ER and dexamethasone 6mg IV. Trial on room air failed in ER, patient was 78% on room air which prompted request for hospital admission for supplemental oxygen. Hospital course: 08/03/21: Patient reports feeling better after the IV fluids in the ER and the oxygen. SOB and sweating has improved. Denies CP, nausea. Patient and refusing remdesevir at this time. They are ok with receiving the lovenox, dexamethasone and adjunctive therapies. Patient requiring 2L to maintain oxygen saturation > 90%. 08/04/21: Imodium started last night for continued diarrhea which has improved symptoms some, however diarrhea persists. Patient feeling better today. Cough has been productive with mucinex. Continues to require supplemental O2, currently at 4L NC. WBC 4.22, Hgb 14.1, Plt 163. Na 144, K 4.7, BUN 22, Creatinine 1.00, CRP 15.7, Albumin 2.43, TSH 0.41. Vitals stable, afebrile. Patient questions when he will be ready to go home. Discussed oxygen requirements as well as lab monitoring with rather elevated CRP. 08/05/21: Patient reports he feels better today, the cough has been more productive, patient desires to go home if home oxygen can be arranged today. Denies any further diarrhea today. Patient sitting up on sofa on rounds, dressed in street clothes. Lung sounds improved from prior, diminished. Hemodynamically stable, BP 161/90, HR 78, remains afebrile. Oxygen 84% on room air, 89% on 2L this am. WBC 7.08, Hgb 15.0, Plt 249. Na 144, K 4.4, BUN 23, Creatinine 1.02, CRP decreased to 4.7 today. Arrangements for home oxygen per nursing. Will plan for discharge home with home oxygen, continued use of IS and tapering dose of oral steroids. Discharge and follow-up recommendations: - Discharge to home per self care with home oxygen to maintain O2 sat > 90% - New medications at discharge: Continue mucinex 600mg PO BID, tapering dose of prednisone over 8 days as prescribed - Follow-up with PCP in 1 week HPI Initial Comments: Patient hoping to discharge home today, feels much better than on admission. - Discharge Data Discharge Date: 08/05/21 Discharge Disposition: Home, Self-Care 01 Condition: Good - Referral to Home Health Primary Care Physician: Rajan Ervin MD - Patient Instructions Diet: Heart Healthy Diet Activity: As Tolerated Driving: Do Not Drive Showering/Bathing: May Shower Other/Special Instructions: - Continue incentive spirometry. - Continue home oxygen to maintain O2 sat > 90% - Discharge Plan *PRESCRIPTION DRUG MONITORING PROGRAM REVIEWED*: Not Applicable *COPY OF PRESCRIPTION DRUG MONITORING REPORT IN PATIENT RANDY: Not Applicable Home Medications: Home Meds Acetaminophen [Acetaminophen Extra Strength] 1,000 mg PO BID 08/03/21 [History] Aspirin 325 mg PO DAILY 08/03/21 [History] Cyclobenzaprine [Flexeril] 10 mg PO TID PRN 08/03/21 [History] Ezetimibe [Zetia] 10 mg PO DAILY 08/03/21 [History] Levothyroxine Sodium [Synthroid] 100 mcg PO ACBREAKFAST 08/03/21 [History] Multivitamin with Minerals [Multiple Vitamin] 1 tab PO DAILY 08/03/21 [History] Nitroglycerin [Nitrostat] 0.4 mg SL ASDIRECTED PRN 08/03/21 [History] Pantoprazole [ProTONIX] 80 mg PO BID 08/03/21 [History] Tamsulosin [Flomax] 0.4 mg PO BEDTIME 08/03/21 [History] amLODIPine Besylate [Amlodipine Besylate] 10 mg PO DAILY 08/03/21 [History] atorvaSTATin Calcium [Atorvastatin Calcium] 80 mg PO BEDTIME 08/03/21 [History] carvediloL [Carvedilol] 25 mg PO BID 08/03/21 [History] guaiFENesin [Mucinex] 600 mg PO BEDTIME 08/03/21 [History] hydroCHLOROthiazide [Hydrochlorothiazide] 25 mg PO DAILY 08/03/21 [History] traMADol [Ultram] 100 mg PO TID 08/03/21 [History] Levothyroxine [Synthroid] 100 mcg PO ACBREAKFAST tablet 08/05/21 [Rx] Loperamide [Imodium] 2 mg PO Q6H PRN cap 08/05/21 [Rx] Tamsulosin [Flomax] 0.4 mg PO BEDTIME cap.er 08/05/21 [Rx] predniSONE 40 mg PO .Daily Taper tablet 08/05/21 [Rx] Oxygen Therapy Mode: Nasal Cannula Oxygen Flow Rate (L/min): 2 (2-4L ) Maintain SpO2% greater than: 90 Referrals: Rajan Ervin MD [Primary Care Provider] - (Schedule a follow-up appointment with your PCP after home quarantine is completed, generally 10 days from onset of symptoms or 10 days from + test if unsure of date of symptoms) - Discharge Summary/Plan Comment DC Time >30 min.: Yes Total # of Minutes for Discharge Time: 35 - General Info Date of Service: 08/05/21 Subjective Update: Patient reports he feels much better today. Cough has been productive with mucinex and he is breathing better as a result. Diarrhea symptoms have improved. - Review of Systems General: Reports: No Symptoms HEENT: Reports: No Symptoms Pulmonary: Reports: Cough, Sputum. Denies: Shortness of Breath, Wheezing Cardiovascular: Reports: Dyspnea on Exertion (mild, improved) Gastrointestinal: Reports: Diarrhea (improved). Denies: Abdominal Pain, Nausea Genitourinary: Reports: No Symptoms Musculoskeletal: Reports: No Symptoms Skin: Reports: No Symptoms Neurological: Reports: No Symptoms Psychiatric: Reports: No Symptoms - Patient Data Vitals - Most Recent: Last Vital Signs Temp 97.8 F 08/05/21 11:00 Pulse 70 08/05/21 11:00 Resp 18 08/05/21 11:00 BP 142/79 H 08/05/21 11:00 Pulse Ox 84 L 08/05/21 12:00 Weight - Most Recent: 225 lb I&O - Last 24 hours: Intake & Output 08/04/21 08/05/21 08/05/21 22:59 06:59 14:59 Intake Total 600 50 Balance 600 50 Lab Results - Last 24 hrs: Laboratory Results - last 24 hr 08/05/21 08/05/21 Range/Units 07:25 07:25 WBC 7.08 (5.00-10.00) 10^3/uL RBC 5.03 (4.50-6.00) 10^6/uL Hgb 15.0 (13.0-17.0) g/dL Hct 46.2 (40.0-52.0) % MCV 91.8 (82.0-92.0) fL MCH 29.8 (27.0-31.0) pg MCHC 32.5 (32.0-36.0) g/dL RDW 13.9 (11.5-14.5) % Plt Count 249 D (150-400) 10^3/uL MPV 10.4 (7.4-10.4) fL Immature Gran % (Auto) 0.3 (0.0-5.0) % Neut % (Auto) 85.2 H (50.0-70.0) % Lymph % (Auto) 8.9 L (20.0-40.0) % [place] % (Auto) 5.5 (2.0-8.0) % Eos % (Auto) 0.0 L (1.0-3.0) % Baso % (Auto) 0.1 (0.0-1.0) % Neut # (Auto) 6.03 (2.50-7.00) 10^3/uL Lymph # (Auto) 0.63 L (1.00-4.00) 10^3/uL [place] # (Auto) 0.39 (0.10-0.80) 10^3/uL Eos # (Auto) 0.00 L (0.10-0.30) 10^3/uL Baso # (Auto) 0.01 (0.00-0.10) 10^3/uL Immature Gran # (Auto) 0.02 (0.00-0.50) 10^3/uL Sodium 144 (136-145) mmol/L Potassium 4.4 (3.5-5.1) mmol/L Chloride 106 (98-107) mmol/L Carbon Dioxide 24.8 (21.0-32.0) mmol/L Anion Gap 17.6 H (5-15) mmol/L BUN 23 H (7-18) mg/dL Creatinine 1.02 (0.51-1.17) mg/dL Est Cr Clr Drug Dosing 64.26 mL/min Estimated GFR (MDRD) > 60 mL/min Glucose 117 (70-140) mg/dL Calcium 8.9 (8.7-10.3) mg/dL Magnesium 2.3 (1.8-2.4) mg/dL Total Bilirubin 0.5 (0.2-1.0) mg/dL AST 28 (15-37) U/L ALT 30 (14-63) U/L Alkaline Phosphatase 57 (46-116) U/L C-Reactive Protein 4.7 H (0.0-0.9) mg/dL Total Protein 7.4 (6.4-8.2) g/dL Albumin 2.67 L (3.40-5.00) g/dL Med Orders - Current: Current Medications Acetaminophen (Acetaminophen 325 Mg Tab) 650 mg PO Q4H PRN PRN Reason: Pain (Mild 1-3)/fever Acetaminophen (Acetaminophen 500 Mg Tab) 1,000 mg PO BID [facility] Last Admin: 08/05/21 09:11 Dose: 1,000 mg Documented by: Ascorbic Acid (Ascorbic Acid 500 Mg Tab) 1,000 mg PO BID [facility] Last Admin: 08/05/21 09:12 Dose: 1,000 mg Documented by: Carvedilol (Carvedilol 12.5 Mg Tab) 25 mg PO BID [facility] Last Admin: 08/05/21 09:13 Dose: 25 mg Documented by: Cholecalciferol (Cholecalciferol (Vitamin D3) 25 Mcg Tab) 25 mcg PO DAILY [facility] Last Admin: 08/05/21 09:14 Dose: 25 mcg Documented by: Dexamethasone (Dexamethasone 4 Mg Tab) 6 mg PO DAILY [facility] Last Admin: 08/05/21 09:12 Dose: 6 mg Documented by: Enoxaparin Sodium (Enoxaparin 40 Mg/0.4 Ml Syringe) 40 mg SUBCUT Q24H [facility] Last Admin: 08/04/21 14:27 Dose: 40 mg Documented by: Guaifenesin (Guaifenesin 600 Mg Tab.Er) 600 mg PO BEDTIME [facility] Last Admin: 08/04/21 21:04 Dose: 600 mg Documented by: Sodium Chloride (Normal Saline) 100 mls @ 200 mls/hr IV ASDIRECTED [facility] Last Admin: 08/03/21 11:04 Dose: 200 mls/hr Documented by: Levothyroxine Sodium (Levothyroxine 100 Mcg Tab) 100 mcg PO ACBREAKFAST [facility] Last Admin: 08/05/21 06:31 Dose: Not Given Documented by: Loperamide HCl (Loperamide 2 Mg Cap) 2 mg PO Q6H PRN PRN Reason: Diarrhea Last Admin: 08/04/21 14:32 Dose: 2 mg Documented by: Pantoprazole Sodium (Pantoprazole 40 Mg Tab.Cr) 80 mg PO BID@0730,2100 [facility] Last Admin: 08/05/21 06:31 Dose: Not Given Documented by: Tamsulosin HCl (Tamsulosin 0.4 Mg Cap.Er) 0.4 mg PO BEDTIME [facility] Last Admin: 08/04/21 21:04 Dose: 0.4 mg Documented by: Tramadol HCl (Tramadol 50 Mg Tab) 100 mg PO TID [facility] Last Admin: 08/05/21 09:13 Dose: 100 mg Documented by: Zinc Gluconate (Zinc (Zinc Gluconate) 50 Mg Tab) 50 mg PO DAILY [facility] Last Admin: 08/05/21 09:14 Dose: 50 mg Documented by: Discontinued Medications Acetaminophen (Acetaminophen 500 Mg Tab) 1,000 mg PO ONETIME ONE Stop: 08/03/21 07:43 Last Admin: 08/03/21 08:16 Dose: 1,000 mg Documented by: Aspirin (Aspirin 81 Mg Tab.Chew) Confirm Administered Dose 324 mg .ROUTE .STK- MED ONE Stop: 08/03/21 07:08 Last Admin: 08/03/21 07:25 Dose: Not Given Documented by: Aspirin (Aspirin 81 Mg Tab.Chew) 324 mg PO ONETIME ONE Stop: 08/03/21 07:23 Last Admin: 08/03/21 07:25 Dose: 324 mg Documented by: Dexamethasone (Dexamethasone 10 Mg/Ml Sdv) 6 mg IVPUSH ONETIME ONE Stop: 08/03/21 08:36 Last Admin: 08/03/21 08:50 Dose: 6 mg Documented by: Sodium Chloride (Normal Saline) Confirm Administered Dose 1,000 mls @ as directed .ROUTE .STK-MED ONE Stop: 08/03/21 07:08 Last Admin: 08/03/21 07:26 Dose: Not Given Documented by: Sodium Chloride (Normal Saline) 1,000 mls @ 999 mls/hr IV .BOLUS ONE Stop: 08/03/21 08:22 Last Admin: 08/03/21 07:25 Dose: 999 mls/hr Documented by: Sodium Chloride (Normal Saline) 1,000 mls @ 1,000 mls/hr IV .BOLUS ONE Stop: 08/03/21 10:18 Last Admin: 08/03/21 09:20 Dose: 1,000 mls/hr Documented by: Iopamidol (Iopamidol 755 Mg/Ml 75 Ml Bottle) 75 ml IVPUSH ONETIME ONE Stop: 08/03/21 09:54 Last Admin: 08/03/21 11:04 Dose: 75 ml Documented by: Pantoprazole Sodium (Pantoprazole 40 Mg Tab.Cr) 40 mg PO BID@0730,2100 [facility] Tramadol HCl (Tramadol 50 Mg Tab) 50 mg PO TID [facility] - Exam Quality Assessment: Reports: Supplemental Oxygen (2L ), DVT Prophylaxis General: Reports: Alert, Oriented, Cooperative, No Acute Distress HEENT: Reports: Pupils Equal, Mucous Membr. Moist/[place] Neck: Reports: Supple, Trachea Midline Lungs: Reports: Decreased Breath Sounds, Rhonchi (few ), Wheezing (fine). Denies: Crackles Cardiovascular: Reports: Regular Rate, Regular Rhythm, No Murmurs GI/Abdominal Exam: Normal Bowel Sounds, Soft, Non-Tender, No Abnormal Bruit (Male) Exam: Deferred Rectal (Males) Exam: Deferred Back Exam: Reports: Normal Inspection, Full Range of Motion Extremities: Normal Inspection, Normal Range of Motion, Non-Tender, No Pedal Edema, Normal Capillary Refill Skin: Reports: Warm, Dry, Intact Neurological: Reports: No New Focal Deficit Psy/Mental Status: Reports: Alert, Normal Affect, Normal Mood
[2021-08-05] MEDS: Enoxaparin 40 MG/0.4 ML Syringe SUBCUT SCH (15:04)
== END 2021-08-05 17:25 | disposition home or self-care (01) | DRG 177 ==
LOC: KA.ED 06:40 → KA.MS 11:49
PROVIDERS: ADMIT Physician Assistant; ATTEND Nurse Practitioner Family
PROC: 3E0DX3Z Introduction of Anti-inflammatory into Mouth and Pharynx, External Approach (ICD-10-PCS; principal; 2021-08-04)
PROC: 3E0333Z Introduction of Anti-inflammatory into Peripheral Vein, Percutaneous Approach (ICD-10-PCS; 2021-08-04)
DX: U07.1 COVID-19 (principal); R06.02 Shortness of breath; J12.82 Pneumonia due to coronavirus disease 2019; I13.0 Hypertensive heart and chronic kidney disease with heart failure and stage 1 through stage 4 chronic kidney disease, or unspecified chronic kidney disease; I11.0 Hypertensive heart disease with heart failure; I50.9 Heart failure, unspecified; I50.22 Chronic systolic (congestive) heart failure; N18.9 Chronic kidney disease, unspecified; I25.10 Atherosclerotic heart disease of native coronary artery without angina pectoris; I25.9 Chronic ischemic heart disease, unspecified; J43.9 Emphysema, unspecified; E78.5 Hyperlipidemia, unspecified; K21.9 Gastro-esophageal reflux disease without esophagitis; E03.9 Hypothyroidism, unspecified; F32.A Depression, unspecified; G47.33 Obstructive sleep apnea (adult) (pediatric); H91.90 Unspecified hearing loss, unspecified ear; H54.7 Unspecified visual loss; E78.00 Pure hypercholesterolemia, unspecified; N40.0 Benign prostatic hyperplasia without lower urinary tract symptoms; M06.9 Rheumatoid arthritis, unspecified; E66.9 Obesity, unspecified; Z79.82 Long term (current) use of aspirin; Z79.899 Other long term (current) drug therapy; Z95.810 Presence of automatic (implantable) cardiac defibrillator; I25.2 Old myocardial infarction; Z85.118 Personal history of other malignant neoplasm of bronchus and lung; Z79.890 Hormone replacement therapy; Z87.891 Personal history of nicotine dependence; Z95.5 Presence of coronary angioplasty implant and graft; Z86.16 Personal history of COVID-19; Z86.19 Personal history of other infectious and parasitic diseases; R19.7 Diarrhea, unspecified
CPT/HCPCS: 36415; 71046; 71275; 80053; 81001; 83605; 83735; 83880; 84145; 84443; 84484; 85025; 85027; 85379; 85730; 86140; 93005; 93010; 96374; 99284; 99285-25; A9270-GY; J1100; J1650; J7030; J8540; Q9967; U0002

== ENCOUNTER 2024-01-01 09:08 | Emergency (ER) | payer OTHER | END 2024-01-01 10:21 | disposition home or self-care (01) | LOC: KA.ED 09:08 | DX: G89.12 Acute post-thoracotomy pain (principal); I10 Essential (primary) hypertension; I25.2 Old myocardial infarction; E78.00 Pure hypercholesterolemia, unspecified; K21.9 Gastro-esophageal reflux disease without esophagitis; E03.9 Hypothyroidism, unspecified; Z95.5 Presence of coronary angioplasty implant and graft; Z86.16 Personal history of COVID-19; Z79.82 Long term (current) use of aspirin; Z97.8 Presence of other specified devices; Z79.899 Other long term (current) drug therapy; Z87.891 Personal history of nicotine dependence | CPT/HCPCS: 71046; 99284 ==

== ENCOUNTER 2024-10-27 16:55 | Emergency (ER) | payer OTHER ==
[2024-10-27 17:42] LABS: BASOPHILS ABSOLUTE AUTO 0.02 10^3/uL (0.00-0.10); BASOPHILS PERCENT AUTO 0.1 % (0.0-1.0); EOSINOPHILS ABSOLUTE AUTO 0.18 10^3/uL (0.10-0.30); EOSINOPHILS PERCENT AUTO 0.8 % (1.0-3.0); HEMATOCRIT 43.8 % (40.0-52.0); HEMOGLOBIN 14.5 g/dL (13.0-17.0); IMMATURE GRAN ABSOLUTE AUTO 0.16 10^3/uL (0.00-0.04); IMMATURE GRAN PERCENT AUTO 0.7 % (0.0-0.4); LYMPHOCYTES PERCENT AUTO 3.1 % (20.0-40.0); MEAN CORPUSCULAR HEMOGLOBIN 31.9 pg (27.0-31.0); MEAN CORPUSCULAR HGB CONC 33.1 g/dL (32.0-36.0); MEAN CORPUSCULAR VOLUME 96.5 fL (82.0-92.0); MEAN PLATELET VOLUME 9.4 fL (7.4-10.4); MONOCYTES PERCENT AUTO 4.4 % (2.0-8.0); NEUTROPHILS ABSOLUTE AUTO 20.75 10^3/uL (2.50-7.00); NEUTROPHILS PERCENT AUTO 90.9 % (50.0-70.0); PLATELET COUNT,PLT 182 10^3/uL (150-400); RED BLOOD CELL COUNT 4.54 10^6/uL (4.50-6.00); RED CELL DISTRIBUTION WIDTH 14.5 % (11.5-14.5); WHITE BLOOD CELL COUNT,WBC 22.81 10^3/uL (5.00-10.00)
[2024-10-27 17:57] LABS: ALBUMIN 2.8 g/dL (3.40-5.00); ANION GAP 10.8 mmol/L (5-15); BILIRUBIN TOTAL 0.6 mg/dL (0.2-1.0); CALCIUM 8.5 mg/dL (8.7-10.3); CREATININE 1.24 mg/dL (0.51-1.17); EST CRCL DRUG DOSING (CG) 50.56 mL/min; POTASSIUM,K 4.8 mmol/L (3.5-5.1); PROTEIN TOTAL,TP 6.4 g/dL (6.4-8.2)
[2024-10-27] MEDS: Doxycycline Monohydrate 100 MG Cap PO ONE (18:23)
[2024-10-27] MEDS: cefTRIAXone 2 GM Vial IVPUSH ONE (18:23)
[2024-10-27] MEDS: Sodium Chloride 0.9% 1,000 ML IV ONE (18:38)
[2024-10-27 19:50] VITALS: BP 108/56; PULSE 110
[2024-10-27] MEDS: Sodium Chloride 0.9% 1,000 ML IV SCH (19:50)
== END 2024-10-27 20:00 ==
LOC: KA.ED 16:55
DX: J18.9 Pneumonia, unspecified organism (principal); D72.829 Elevated white blood cell count, unspecified; I10 Essential (primary) hypertension; I25.2 Old myocardial infarction; E78.00 Pure hypercholesterolemia, unspecified; K21.9 Gastro-esophageal reflux disease without esophagitis; E03.9 Hypothyroidism, unspecified; E66.9 Obesity, unspecified; Z68.27 Body mass index [BMI] 27.0-27.9, adult; Z86.16 Personal history of COVID-19; Z79.82 Long term (current) use of aspirin; Z79.890 Hormone replacement therapy; Z79.899 Other long term (current) drug therapy
CPT/HCPCS: 36415; 71045; 80053; 83605; 83880; 85025; 87040; 87428-QW; 96374; 99285-25; A9270-GY; J0696; J7030

== ENCOUNTER 2025-03-31 09:40 | Emergency (ER) | payer OTHER | END 2025-03-31 10:45 | disposition home or self-care (01) | LOC: KA.ED 09:45 | DX: R04.0 Epistaxis (principal); E78.00 Pure hypercholesterolemia, unspecified; I10 Essential (primary) hypertension; I25.2 Old myocardial infarction; K21.9 Gastro-esophageal reflux disease without esophagitis; E03.9 Hypothyroidism, unspecified; Z79.899 Other long term (current) drug therapy; Z79.82 Long term (current) use of aspirin; Z86.16 Personal history of COVID-19; Z95.5 Presence of coronary angioplasty implant and graft; Z87.891 Personal history of nicotine dependence | CPT/HCPCS: 30901; 99283; 99283-25 ==

== ENCOUNTER 2025-06-26 11:02 | Emergency (ER) | payer OTHER ==
[2025-06-26] MEDS ORDERED: Sodium Chloride 0.9% 10 ML Syringe FLUSH PRN (11:23)
[2025-06-26 11:36] LABS: BASOPHILS ABSOLUTE AUTO 0.02 10^3/uL (0.00-0.10); BASOPHILS PERCENT AUTO 0.5 % (0.0-1.0); EOSINOPHILS ABSOLUTE AUTO 0.11 10^3/uL (0.10-0.30); EOSINOPHILS PERCENT AUTO 2.8 % (1.0-3.0); IMMATURE GRAN ABSOLUTE AUTO 0.03 10^3/uL (0.00-0.04); IMMATURE GRAN PERCENT AUTO 0.8 % (0.0-0.4); LYMPHOCYTES ABSOLUTE AUTO 1.17 10^3/uL (1.00-4.00); LYMPHOCYTES PERCENT AUTO 30.0 % (20.0-40.0); MEAN PLATELET VOLUME 10.0 fL (7.4-10.4); MONOCYTES ABSOLUTE AUTO 0.23 10^3/uL (0.10-0.80); MONOCYTES PERCENT AUTO 5.9 % (2.0-8.0); NEUTROPHILS ABSOLUTE AUTO 2.34 10^3/uL (2.50-7.00); NEUTROPHILS PERCENT AUTO 60.0 % (50.0-70.0); PLATELET COUNT,PLT 53 10^3/uL (150-400); RED BLOOD CELL COUNT 3.29 10^6/uL (4.50-6.00); RED CELL DISTRIBUTION WIDTH 15.3 % (11.5-14.5)
[2025-06-26 11:57] LABS: ALANINE AMINOTRANSFERASE,ALT 32.0 U/L (14-63); ASPARTATE AMNIOTRANSFERASE,AST 22.0 U/L (15-37); BILIRUBIN TOTAL 0.3 mg/dL (0.2-1.0); BLOOD UREA NITROGEN,BUN 17.0 mg/dL (7-18); CARBON DIOXIDE,CO2 29.0 mmol/L (21.0-32.0); CHLORIDE,CL 99.0 mmol/L (98-107); CREATININE 0.94 mg/dL (0.51-1.17); EST CRCL DRUG DOSING (CG) 65.69 mL/min; GLUCOSE RANDOM 101.0 mg/dL (70-140); POTASSIUM,K 4.1 mmol/L (3.5-5.1); PROTEIN TOTAL,TP 6.3 g/dL (6.4-8.2); SODIUM,NA 135.0 mmol/L (136-145)
[2025-06-26 11:58] LABS: ESTIMATED GFR 85.0 mL/min (>=60)
[2025-06-26 12:01] LABS: WHITE BLOOD CELL COUNT,WBC 3.90 10^3/uL (5.00-10.00)
[2025-06-26 12:16] LABS: APPEARANCE,URINE CLEAR (CLEAR); GLUCOSE,URINE >=1000 mg/dL (NEGATIVE); OCCULT BLOOD,URINE NEGATIVE (NEGATIVE)
== END 2025-06-26 14:55 ==
LOC: KA.ED 11:04
DX: S12.690A Other displaced fracture of seventh cervical vertebra, initial encounter for closed fracture (principal); G95.20 Unspecified cord compression; R79.89 Other specified abnormal findings of blood chemistry; I10 Essential (primary) hypertension; E78.00 Pure hypercholesterolemia, unspecified; I25.2 Old myocardial infarction; K21.9 Gastro-esophageal reflux disease without esophagitis; E03.9 Hypothyroidism, unspecified; E66.9 Obesity, unspecified; Z86.16 Personal history of COVID-19; Z95.5 Presence of coronary angioplasty implant and graft; Z79.82 Long term (current) use of aspirin; Z79.890 Hormone replacement therapy; Z79.899 Other long term (current) drug therapy; W18.11XA Fall from or off toilet without subsequent striking against object, initial encounter
CPT/HCPCS: 71045; 72128; 72131; 80053; 81003; 83605; 84484; 85025; 93010; 96360; 99284; 99285-25; A9270-GY; J7030